=== PATIENT | female | born 2000 | race Two or more races ===

== ENCOUNTER 2024-05-11 09:53 | Emergency (ER) | payer BC, MEDICAID, SELFPAY ==
[2024-05-11 10:10] VITALS: BP 145/81; PULSE 61; RESP 18; TEMP 36.6; O2SAT 99; BMI 42.0
--- NOTE | 2024-05-11 10:19 | PD.EDRME ---
Rapid Medical Screening Exam RME Arrival date/time: 05/11/24 09:53 23-year-old female presents to the emergency department complains of abdominal pain, patient has history of gallstones Chief Complaint: Abdominal Pain Time Seen by Provider: 05/11/24 09:56 Vital signs: Vital Signs Temperature 97.9 F 05/11/24 10:10 Pulse Rate 61 05/11/24 10:10 Respiratory Rate 18 05/11/24 10:10 Blood Pressure 145/81 H 05/11/24 10:10 Pulse Oximetry (%) 99 05/11/24 10:10 Oxygen Delivery Method Room Air 05/11/24 10:10
[2024-05-11] MEDS: HYDROcodone/APAP 5/325 TABLET 1 TAB PO (10:21)
[2024-05-11] MEDS: METOCLOPRAMIDE 5 MG TABLET 10 MG PO (10:21)
[2024-05-11 10:35] LABS: Basophils % (Auto) 0 % (0-2.5); Eosinophils # (Auto) 0.1 Thou/mm3 (0.0-0.5); Eosinophils % (Auto) 1 % (0-10); Hematocrit 42.4 % (36.0-46.0); Hemoglobin 14.6 g/dL (12.0-16.0); Immature Granulocytes % (Auto) 0 % (0-0); Immature Granulocytes Auto 0.03 Thou/mm3 (0.00-0.00); Lymphocytes # (Auto) 2.6 Thou/mm3 (1.0-4.8); Lymphocytes % (Auto) 27 % (10-50); Mean Corpuscular HGB Conc 34.4 g/dl (31.0-37.0); Mean Corpuscular Hemoglobin 28.8 pg (25.0-35.0); Mean Corpuscular Volume 84 fL (80-100); Monocytes # (Auto) 0.4 Thou/mm3 (0.0-0.8); Monocytes % (Auto) 4 % (0-12); Neutrophils # (Auto) 6.5 Thou/mm3 (1.8-7.7); Neutrophils % (Auto) 68 % (37-80); Nucleated Red Blood Cell % 0 /100 WBC (0); Platelet Count 310 Thou/mm3 (140-440); RDW Standard Deviation 39.4 fL (36.4-46.3); Red Blood Count 5.07 Miln/mm3 (4.00-5.20); White Blood Count 9.7 Thou/mm3 (3.6-11.0)
[2024-05-11 10:49] LABS: Alanine Aminotransferase 10 U/L (10-49); Albumin, Serum 4.9 gm/dL (3.5-5.0); Albumin/Globulin Ratio 1.8 (1.2-2.2); Alkaline Phosphatase 86 U/L (46-116); Anion Gap 7 (7-16); Aspartate Amino Transferase < 10 U/L (0-34); BUN/Creatinine Ratio 14 Ratio (12-20); Bilirubin,Total 0.4 mg/dL (0.3-1.2); Blood Urea Nitrogen 11 mg/dL (9-23); Calcium 9.8 mg/dL (8.3-10.6); Calcium (Corrected) 9.8 mg/dL (8.5-10.1); Carbon Dioxide 29.2 mMol/L (20.0-31.0); Chloride 103 mMol/L (98-107); Creatinine (Component) 0.8 mg/dL (0.6-1.3); Estimated Creatinine Clearance 131.1 mL/min (>60); Globulin 2.7 gm/dL (2.3-3.5); Glucose 116 mg/dL (74-106); Lipase 38 U/L (12-53); Osmolality,Calculated 277 (275-295); Potassium 3.9 mMol/L (3.4-5.1); Sodium 139 mMol/L (136-145); Total Protein 7.6 gm/dL (5.7-8.2); Troponin I < 0.002 ng/mL (0.0-0.045); eGFR > 60 See Note
--- NOTE | 2024-05-11 10:52 | XR_ITS ---
Examination: Abdomen sonogram, Limited Date and time of exam: May 11, 2024 at 1141 hrs. Indications: Epigastric pain nausea vomiting beginning 7 hours ago Technique: Real-time alvarez scale transabdominal sonographic images of the upper abdomen obtained. Findings: Multiple gallstones Gallbladder wall 0.49 cm Common bile duct 0.4 cm no stones Pancreatic head 2.5 cm Liver 15.9 cm smooth contour no focal liver lesions Normal hepatopedal portal venous flow Patent IVC Impression: Cholelithiasis Abnormal thickening of the gallbladder wall 0.4 times CM, consider HIDA scan or MRCP follow-up to exclude cholecystitis No common bile duct stones
--- NOTE | 2024-05-11 12:26 | PD.EDABDPN ---
ED Abdominal Pain RME/HPI General Chief Complaint: Abdominal Pain Stated complaint: SHARP ABDOMINAL PAIN Time seen by provider: 05/11/24 09:56 Arrival date/time: 05/11/24 09:53 23-year-old female presents emergency department today complaints of intermittent abdominal pain epigastric patient for symptoms ongoing x 1 day patient reports history of gallstones in the past. Patient reports no chest pain or shortness of breath no headache dizziness or weakness Limitations: no limitations RME / HPI RME / HPI narrative: 05/11/24 09:53 23-year-old female presents to the emergency department complains of abdominal pain, patient has history of gallstones Related Data Previous Rx's ?Medication ?Instructions ?Recorded hydrocodone 5 mg-acetaminophen 325 1 tab PO BID PRN pain #10 tabs 05/11/24 mg tablet ibuprofen 800 mg tablet 800 mg PO TID PRN pain #30 tabs 05/11/24 ondansetron 4 mg disintegrating 4 mg PO Q8H PRN nausea and 05/11/24 tablet vomiting #10 tabs hydrocodone 5 mg-acetaminophen 325 1 tab PO Q6H #10 tabs 05/12/24 mg tablet Allergies Allergy/AdvReac Type Severity Reaction Status Date / Time No Known Allergies Allergy Unverified 05/12/24 14:31 Review of Systems Review of Systems Systems Reviewed: All systems reviewed, normal except as documented Constitutional Constitutional: Reports system reviewed and no additional complaints, except as documented, Denies fever(s) and Denies headache(s) Eyes Eyes: Reports system reviewed and no additional complaints, except as documented and Denies blurry vision ENT Ears, Nose, Mouth, and Throat: Reports system reviewed and no additional complaints, except as documented, Denies headache(s), Denies nasal congestion and Denies nasal discharge Cardiovascular Cardiovascular: Reports system reviewed and no additional complaints, except as documented, Denies chest pain and Denies dyspnea Respiratory Respiratory: Reports system reviewed and no additional complaints, except as documented, Denies chest congestion, Denies cough and Denies dyspnea Gastrointestinal Gastrointestinal: Reports system reviewed and no additional complaints, except as documented, Reports abdominal pain, Reports nausea and Reports vomiting Integumentary/Breasts Skin/Breast: Reports system reviewed and no additional complaints, except as documented and Denies rash Neurologic Neurologic: Reports system reviewed and no additional complaints, except as documented, Reports as per HPI and Denies headache(s) Past Medical History Past Medical History NEUROLOGIC: Negative Neurological Disorders CARDIAC: Negative Cardiac Disorders or Congestive Heart Failure RESPIRATORY: Negative Chronic Obstructive Pulmonary Disease (COPD) or Asthma GENITOURINARY: Negative Renal Disease ENDOCRINE: Negative Diabetes Mellitus Type 1 or Diabetes Mellitus Type 2 HEMATOLOGIC: Negative Sickle Cell Disease Social History SMOKING STATUS: Current some day smoker ED Exam General Limitations: Present no limitations General appearance: Present alert and in no apparent distress Head Head exam: Present atraumatic Eye Eye exam: Present normal appearance, PERRL and EOMI ENT ENT exam: Present normal exam, normal oropharynx and mucous membranes moist Neck Neck exam: Present normal inspection, full ROM and trachea midline Chest Chest inspection: Present normal inspection and symmetric chest wall rise Respiratory Respiratory exam: Present normal lung sounds bilaterally Cardiovascular Cardiovascular exam: Present regular rate, normal rhythm and normal heart sounds Abdominal Exam Abdominal exam: Present soft, tenderness and normal bowel sounds; Absent Lozano's sign or tenderness at McBurney's Point Abdominal tenderness: Present epigastrium, mild and moderate; Absent RUQ or RLQ Extremities Exam Extremities exam: Present normal inspection and full ROM Back Exam Back exam: Present normal inspection and full ROM Neurological Exam Neurological exam: Present alert, oriented X3 and CN II-XII intact Psychiatric Psychiatric exam: Present normal affect and normal mood Skin Skin exam: Present warm, dry, intact and normal color Course Quality Measures none Orders Category Date Time Status US gall bladder Stat Exams 05/11/24 10:52 Completed CBC Stat Lab 05/11/24 10:18 Completed Comprehensive Metabolic Panel Stat Lab 05/11/24 10:18 Completed HCG Qualitative,Urine Stat Lab 05/11/24 13:25 Completed HCG,Qualitative Serum Stat Lab 05/11/24 10:12 Completed Lipase Stat Lab 05/11/24 10:18 Completed Troponin I Stat Lab 05/11/24 10:18 Completed UA, C/S IF [Urinalysis, C/S if Indicated] Stat Lab 05/11/24 13:25 Completed HYDROcodone*/APAP 5/325 [[place] 5/325] Med 05/11/24 10:14 Discontinued 1 tab PO X1 ONE Metoclopramide [Reglan] Med 05/11/24 10:14 Discontinued 10 mg PO X1 ONE Vital Signs Vital signs: Vital Signs Temperature 97.9 F 05/11/24 10:10 Pulse Rate 61 05/11/24 10:10 Respiratory Rate 18 01/19/25 10:10 Blood Pressure 145/81 H 05/11/24 10:10 Pulse Oximetry (%) 99 05/11/24 10:10 Oxygen Delivery Method Room Air 05/11/24 10:10 O2 saturation 99% room air within normal limits Abdominal Pain MDM MDM Narrative MDM Narrative:: 23-year-old female presents emergency department today complaints of intermittent abdominal pain epigastric patient for symptoms ongoing x 1 day patient reports history of gallstones in the past. Patient reports no chest pain or shortness of breath no headache dizziness or weakness On exam patient well-appearing patient is not appear ill or toxic Patient medicated which did improve her symptom Lab work as well as ultrasound obtained Ultrasound consistent with gallstones and cholelithiasis Liver enzymes are normal I do not suspect patient has CBD stone obstruction Consultation: I discussed the findings of the ultrasound with Dr Smith as well as lab work he felt patient may follow-up in outpatient basis As the patient has no elevation liver enzymes negative Lozano sign and patient symptoms have improved patient be discharged home I did explain to the patient that if symptoms persist or worsen he should return immediately for further evaluation Patient discharged home in no distress to follow-up with primary care doctor in the next 24 to 48 hours and request evaluation by general surgeon Patient data External records reviewed:: [facility] previous records Clinical information provided by:: patient Social determinants that could affect healthcare access:: none Patient has the following chronic illnesses:: gallstones How is presenting disease/condition affected by chronic disease/condition?: caused by Evaluation data The following diagnostics were reviewed and interpreted by me:: lab results and radiology exam(s) Lab and/or radiology exams considered but not ordered:: Lab and radiology obtained Interpretation Summary: Reviewed by me Medications / Prescriptions Medications or Prescriptions considered but not ordered:: Given Medication administrations:: Medication Administration History Discontinued Medications Hydrocodone Bitart/Acetaminophen (Hydrocodone/Apap 5/325 Tablet) 1 tab PO X1 ONE Stop: 05/11/24 10:15 Last Admin: 05/11/24 10:21 Dose: 1 tab Documented By: DO Metoclopramide HCl (Metoclopramide 5 Mg Tablet) 10 mg PO X1 ONE Stop: 05/11/24 10:15 Last Admin: 05/11/24 10:21 Dose: 10 mg Documented By: DO Given Consultations Consultation(s) initiated? (list below): Yes Consultation #1 (Physician, Specialty, Details): Dr Smith Diagnosis Differential diagnosis abdominal pain: abdominal pain and gastroenteritis Most likely diagnosis given after review of the tests above:: Gastroenteritis Admission Indicated Admission indicated?: not indicated Admission Request Was there a request for admission?: No Disposition Plan Disposition Plan: Discharge Discharge Attestation Discharge Attestation: The patient and all family members were given an opportunity to ask questions and understood the discharge instructions. Discharge instructions specifically effects, indications for sooner follow up or return to the emergency department, and the expected course of current diagnosis. Patient condition: Stable Discharge Plan Plan Patient Disposition: HOME (Self Care) Disposition Comment: Stable Prescriptions/Referrals Prescriptions/Med Rec: New ibuprofen 800 mg tablet 800 mg PO TID PRN (Reason: pain) Qty: 30 0RF hydrocodone-acetaminophen 5-325 mg tablet 1 tab PO BID MDD 10 PRN (Reason: pain) Qty: 10 0RF ondansetron 4 mg tablet,disintegrating 4 mg PO Q8H PRN (Reason: nausea and vomiting) Qty: 10 0RF No Action hydrocodone-acetaminophen 5-325 mg tablet 1 tab PO Q6H MDD 4 Qty: 10 0RF Referrals: John Henriquez MD [Primary Care Provider] - 05/12/24 Problem List Clinical Impression: Gallstones Patient/Caregiver Discharge Instructions Education Materials: Treating Gallstones Additional Instructions: Please follow-up with your primary care doctor and or get referral to GI specialist for worsening symptoms or concerns return to the ER immediately You do have gallstones which will require further intervention with specialist Print Language: Slovak Stand Alone Forms: Tara Award Info., Work/School Release, Patient Portal Info Letter OLEG/MEDICAL RESEARCH ASSOCIATE Supervising Physician PA/MEDICAL RESEARCH ASSOCIATE Supervising Physician: Dr. Van
[2024-05-11 12:44] LABS: HCG,Qualitative Serum Negative
[2024-05-11 13:30] LABS: Collection Type, Urine Clean Catch; RBC,Urine 0 /hpf (0-3)
[2024-05-11 13:51] LABS: HCG Qualitative,Urine Negative
[2024-05-11 13:59] LABS: Amorphous Crystals,Urine Present (Absent); Bilirubin,Urine Negative (Negative); Blood,Urine Negative (Negative); Clarity,Urine Turbid (Clear/Hazy); Color,Urine Yellow (Lt Yel-Yel); Culture Indicated,Urine Not Indicated; Glucose, Urine Negative (Negative); Ketones,Urine 1+ (Negative); Leukocyte Esterase,Urine Positive (Negative); Nitrite,Urine Negative (Negative); PH,Urine 5.5 (5.0-7.0); Protein,Urine 1+ (Neg - Trace); Specific Gravity,Urine 1.035 (1.001-1.035); Squamous Epithelial Cell,Urine 9 /hpf (0-5); Urobilinogen,Urine Negative mg/dL (0.0-1.0); WBC,Urine 7 /hpf (0-5)
== END 2024-05-11 13:56 | disposition home or self-care (01) ==
PROVIDERS: Nurse Practitioner Primary Care; Emergency Provider Emergency Medicine; PCP Family Medicine
DX: K80.20 Calculus of gallbladder without cholecystitis without obstruction (principal)
CPT/HCPCS: 36415; 76705; 80053; 81001; 81025; 83690; 84484; 84703; 85025; 99284; A9270

== ENCOUNTER 2024-05-12 03:06 | Day surgery (SDC) | payer BC, MEDICAID, SELFPAY ==
[2024-05-12] VITALS (15 sets, daily range): BP systolic 100–158; BP diastolic 58–97; PULSE 52–108; RESP 12–23; TEMP 36.2–36.9; O2SAT 94–100; BMI 42.0
--- NOTE | 2024-05-12 03:35 | PD.EDRME ---
Rapid Medical Screening Exam [facility] Arrival date/time: 05/12/24 03:06 23-year-old female presents emergency department complaining of epigastric pain with nausea vomiting and subjective fever. Patient reports was seen yesterday in the emergency department diagnosed with gallstone was sent home with pain medication but reports symptoms worsened. Chief Complaint: Abdominal Pain Time Seen by Provider: 05/12/24 03:20 Vital signs: Vital Signs Temperature 97.8 F 05/12/24 03:13 Pulse Rate 58 L 05/12/24 03:13 Respiratory Rate 19 05/12/24 03:13 Blood Pressure 129/83 05/12/24 03:13 Pulse Oximetry (%) 97 05/12/24 03:13 Oxygen Delivery Method Room Air 05/12/24 03:13 Vital signs reviewed by provider: Yes
[2024-05-12] MEDS: ONDANSETRON ODT 4 MG TABRAP PO (03:51)
[2024-05-12] MEDS: KETOROLAC INJ 60 MG/2 ML VIAL 30 MG IM (03:51)
[2024-05-12 04:21] LABS: Basophils % (Auto) 0 % (0-2.5); Eosinophils # (Auto) 0.1 Thou/mm3 (0.0-0.5); Eosinophils % (Auto) 1 % (0-10); Hematocrit 43.7 % (36.0-46.0); Hemoglobin 14.9 g/dL (12.0-16.0); Immature Granulocytes % (Auto) 0 % (0-0); Immature Granulocytes Auto 0.03 Thou/mm3 (0.00-0.00); Lymphocytes % (Auto) 25 % (10-50); Mean Corpuscular HGB Conc 34.1 g/dl (31.0-37.0); Mean Corpuscular Hemoglobin 28.5 pg (25.0-35.0); Mean Corpuscular Volume 84 fL (80-100); Monocytes # (Auto) 0.6 Thou/mm3 (0.0-0.8); Monocytes % (Auto) 5 % (0-12); Neutrophils # (Auto) 8.2 Thou/mm3 (1.8-7.7); Neutrophils % (Auto) 69 % (37-80); Nucleated Red Blood Cell % 0 /100 WBC (0); Platelet Count 322 Thou/mm3 (140-440); RDW Standard Deviation 38.5 fL (36.4-46.3); Red Blood Count 5.22 Miln/mm3 (4.00-5.20)
[2024-05-12 04:39] LABS: Alanine Aminotransferase 11 U/L (10-49); Albumin, Serum 4.9 gm/dL (3.5-5.0); Albumin/Globulin Ratio 1.7 (1.2-2.2); Alkaline Phosphatase 85 U/L (46-116); Anion Gap 9 (7-16); Aspartate Amino Transferase 13 U/L (0-34); BUN/Creatinine Ratio 9 Ratio (12-20); Bilirubin,Total 0.7 mg/dL (0.3-1.2); Blood Urea Nitrogen 6 mg/dL (9-23); Calcium 10.2 mg/dL (8.3-10.6); Calcium (Corrected) 10.2 mg/dL (8.5-10.1); Carbon Dioxide 28.4 mMol/L (20.0-31.0); Chloride 101 mMol/L (98-107); Creatinine (Component) 0.7 mg/dL (0.6-1.3); Estimated Creatinine Clearance 149.9 mL/min (>60); Globulin 2.9 gm/dL (2.3-3.5); Glucose 104 mg/dL (74-106); Lipase 41 U/L (12-53); Osmolality,Calculated 273 (275-295); Potassium 3.8 mMol/L (3.4-5.1); Sodium 138 mMol/L (136-145); Total Protein 7.8 gm/dL (5.7-8.2); eGFR > 60 See Note
[2024-05-12 04:44] LABS: HCG,Qualitative Serum Negative
--- NOTE | 2024-05-12 04:50 | XR_ITS ---
Examination: Abdomen sonogram, Limited Date and time of exam: May 12, 2024 0507 hrs. Indications: Right upper abdominal pain beginning 2 days ago, history gallstones Technique: Real-time alvarez scale transabdominal sonographic images of the upper abdomen obtained. Findings: Multiple gallstones Gallbladder wall measures 0.42 cm Common bile duct 0.4 cm Pancreatic head 2.9 cm Liver 14.7 cm fatty infiltration smooth contour no focal liver lesions Normal hepatopedal portal venous flow Patent IVC Impression: Cholelithiasis Gallbladder wall is abnormally thickened 0.42 cm, consider HIDA scan or MRCP follow-up to exclude cholecystitis
--- NOTE | 2024-05-12 05:53 | PRELIM_ITS ---
Gallbladder ultrasound. May 12, 2024 at 0507 hoursClinical history: Right upper quadrant pain, h istory of cholelithiasis.Comparison: No prior study is available for comparison. Findings:The visual ized liver is without mass or ductal dilatation.Fatty infiltration of the liver is noted. Multiple ca lculi are noted within the gallbladder, with gallbladder wall thickening. Sonographic Lozano sign is positive.The common duct is normal in caliber at 4 mm. The pancreas is within normal limits.. No free fluid is demonstrated on the submitted images.Impression:Findings suspicious for acute calculous cho lecystitis.Hepatic steatosis. Report Electronically Signed By: Alexa Perez 05/12/2024 5:52:49 AM [EST]
--- NOTE | 2024-05-12 06:38 | EDNOTE_ITS ---
ED General RME/HPI General Chief complaint: Abdominal Pain Stated complaint: GALLSTONES PAIN Time Seen by Provider: 05/12/24 03:20 Arrival date/time: 05/12/24 03:06 RME / HPI RME / HPI narrative: Chief complaint: 05/12/24 03:06 epigastric pain, nausea vomiting and subjective fever x 1 day HPI: Patient is a 23-year-old female who no past medical history but >10 lbs recent weight gain, who presented to the emergency department complaining of epigastric pain with nausea vomiting and subjective fever x1 day. Patient reports she was seen yesterday in the ER and was diagnosed with gallstone, but was sent home with pain medication as no sign of infection noted. She now reports worsening of symptoms over the last 24 hours with right upper abdominal pain now 8/10 (compared to 5/10 yesterday). She described her pain as sharp and achy, she is unable to tolerate any food or water over the last 4-5 hours. She has had yellow-green vomitus x 4 episodes over the last 12 hours, and continues to have severe nausea. She also had subjective fever at home but did not take any medications for the pain or the fever. She has no other systemic symptoms at this time. She is otherwise in good health and has no medical conditions, denies taking any medications or supplements. In the ED, vitals showed WBC 12, no fevers and GB US confirms acute calculous cholecystitis. Past surgical history: Nil Allergies: NKFDA Social history: Tobacco?Use:?1-2 cigarettes daily x 15 years ETOH?Use:?Socially Drug?Note:?Denies Social?History?Note:?Lives?at home with , no children Family history: Denies any SCD or stroke in the family. Negative for cancers. L Related Data Previous Rx's ?Medication ?Instructions ?Recorded hydrocodone 5 mg-acetaminophen 325 1 tab PO BID PRN pain #10 tabs 05/11/24 mg tablet ibuprofen 800 mg tablet 800 mg PO TID PRN pain #30 tabs 05/11/24 ondansetron 4 mg disintegrating 4 mg PO Q8H PRN nausea and 05/11/24 tablet vomiting #10 tabs Allergies Allergy/AdvReac Type Severity Reaction Status Date / Time NKA* Allergy Uncoded 05/11/24 09:56 Review of Systems Review of Systems Narrative Review of Systems: GENERAL: subjective fevers/chills, no diaphoresis. HEENT: Denies headache or visual/hearing changes. Denies nasal discharge. NEURO: Denies unusual weakness or difficulty speaking. CARDIO: Denies chest pain or palpitations. PULM: Denies SOB, coughing, or wheezing. GI: epigastric-RUQ abdominal pain, N/V, denies C/D. Reports having BMs URO: Denies burning/itching/pain/urinary changes. DIGITAL COMMUNICATIONS MANAGER: Denies menstrual changes, hot flashes. MSK/EXT/SKIN: Denies joint/skeletal/muscle pain, issues/changes in upper or lower extremities, itchiness, or superficial pain. PSYCH: Cooperative, pleasant mood & affect. The rest of the review of systems is otherwise negative. ED Exam Narrative Physical exam: Constitutional Alert, oriented x4 and in mild discomfort, nauseous HEENT Vision grossly intact. Patent nares. Trachea midline, on RA Respiratory Chest normal on inspection and clear to auscultation bilaterally. Cardiovascular S1 and S2 audible, RRR. No murmurs or carotid bruit. No gross JVD. Abdominal Soft, tender to deep palpation in RUQ quadrant and epigastric regon. BS + Genitourinary No bladder tenderness, no flank pain. Normal to palpation. Musculoskeletal Extremities tone within normal limits. No LE edema. Neurological CN II - XII grossly intact. Extremity motor and sensation grossly intact. Skin Warm, dry and intact. No apparent lesions. Psychiatric Patient has a good affect, is cooperative. Course Course Course Narrative: GB US: Impression suspicious for acute calculous cholecystitis. Quality Measures none Orders Category Date Time Status Patient Condition Routine Admission 05/12/24 09:[address] in Surgical Day Care Routine Admission 05/12/24 09:44 Active Activity as Tolerated Routine Care 05/12/24 09:44 Ordered Insert IV NOW Care 05/12/24 09:43 Active Obtain Written Consent For: NOW Care 05/12/24 09:44 Completed Consult to General Surgery Stat Cons 05/12/24 07:01 Ordered US gall bladder Stat Exams 05/12/24 04:50 Completed CBC Stat Lab 05/12/24 03:49 Completed CMP [Comprehensive Metabolic Panel] Stat Lab 05/12/24 03:49 Completed HCG,Qualitative Serum Stat Lab 05/12/24 03:49 Completed Lipase Stat Lab 05/12/24 03:49 Completed PTT [Partial Thromboplastin Time] Stat Lab 05/12/24 03:49 Completed Prothrombin Time with INR Stat Lab 05/12/24 03:49 Completed Urinalysis, C/S if Indicated Stat Lab 05/12/24 06:53 Completed Ketorolac Inj [Toradol Inj] Med 05/12/24 03:36 Discontinued 30 mg IM X1 ONE Ondansetron Odt [Zofran Odt] Med 05/12/24 03:36 Discontinued 4 mg PO X1 ONE Piper/Tazo 3.375 gm [Zosyn] 50 ml Med 05/12/24 06:37 Discontinued IV X1 Sodium Chloride 0.9% 1000 ml [Ns] 1,000 ml Med 05/12/24 09:45 Active IV 100 mls/hr Code Status Routine Oth 05/12/24 09:43 Ordered Vital Signs Vital signs: Vital Signs Temperature 97.8 F 05/12/24 03:13 Pulse Rate 58 L 05/12/24 03:13 Respiratory Rate 19 05/12/24 03:13 Blood Pressure 129/83 05/12/24 03:13 Pulse Oximetry (%) 97 05/12/24 03:13 Oxygen Delivery Method Room Air 05/12/24 03:13 [facility] Patient data External records reviewed:: [facility] previous records Clinical information provided by:: patient Social determinants that could affect healthcare access:: none Patient has the following chronic illnesses:: None How is presenting disease/condition affected by chronic disease/condition?: no chronic disease Evaluation data The following diagnostics were reviewed and interpreted by me:: lab results, radiology exam(s) and EKG tracing(s) Lab and/or radiology exams considered but not ordered:: CT abdo Interpretation Summary: Likely acute calculous cholecystitis Medications Medications considered but not ordered:: Morphine for pain Medication administrations:: Medication Administration History Sodium Chloride (Ns) 1,000 mls @ 100 mls/hr IV .Q10H PAWEL Stop: 06/11/24 09:44 Discontinued Medications Piperacillin/Tazobactam/Dextrose (Zosyn) 50 mls @ 100 mls/hr IV X1 ONE Stop: 05/12/24 07:06 Last Infusion: 05/12/24 07:56 Dose: Infused Documented By: Admin: 05/12/24 07:07 Dose: 100 mls/hr Documented By: AM Ketorolac Tromethamine (Ketorolac Inj 60 Mg/2 Ml Vial) 30 mg IM X1 ONE Stop: 05/12/24 03:37 Last Admin: 05/12/24 03:51 Dose: 30 mg Documented By: ATTILA Ondansetron HCl (Ondansetron Odt 4 Mg Tabrap) 4 mg PO X1 ONE; Protocol Stop: 05/12/24 03:37 Last Admin: 05/12/24 03:51 Dose: 4 mg Documented By: ATTILA Keterolac for pain Zofran for N/V Zosyn for cholecystitison US Consultations Consultation(s) initiated? (list below): Yes Consultation #1 (Physician, Specialty, Details): Gen Surg - Dr Christian Diagnosis Differential Diagnosis ED Complaint MDM: gastric ulcer Most likely diagnosis given after review of the tests above:: Calculous cholecystitis Admission Indicated Admission indicated?: indicated Explain why admission is indicated or not indicated:: Acute cholecystitis, calculous Admission Request Was there a request for admission?: Yes Admission Attestation Admission request attestation: Discussed case with Dr Christian from general surgery service regarding admission. Discussed patients ED course, exam findings, labs, and radiology results. The Hospitalist [agrees] to accept the patient for admission. Disposition Plan Disposition Plan: Admit Medical Decision Making MDM Narrative MDM Narrative: Patient is a 23 year old female no past medical history but >10 lbs recent weight gain, who presented with RUQ-epigastric pain and severe N/V x 24 hours. She was found to have leukocytosis WBC 12 and calculous cholecystitis on GB US. General surgeyr Dr Christian consulted, appreciate recommendations, will admit for lap perfecto. Differential Diagnosis Differential Diagnosis: gastric ulcer Lab Data 05/12/24 03:49 05/12/24 03:49 Labs: Lab Results 05/12/24 05/12/24 Range/Units 03:49 06:53 WBC 12.0 H (3.6-11.0) Thou/mm3 RBC 5.22 H (4.00-5.20) Miln/mm3 Hgb 14.9 (12.0-16.0) g/dL Hct 43.7 (36.0-46.0) % MCV 84 (80-100) fL MCH 28.5 (25.0-35.0) pg MCHC 34.1 (31.0-37.0) g/dl RDW Std Deviation 38.5 (36.4-46.3) fL Plt Count 322 (140-440) Thou/mm3 Neut % (Auto) 69 (37-80) % Lymph % (Auto) 25 (10-50) % Potter % (Auto) 5 (0-12) % Eos % (Auto) 1 (0-10) % Baso % (Auto) 0 (0-2.5) % Neut # (Auto) 8.2 H (1.8-7.7) Thou/mm3 Lymph # (Auto) 3.0 (1.0-4.8) Thou/mm3 Potter # (Auto) 0.6 (0.0-0.8) Thou/mm3 Eos # (Auto) 0.1 (0.0-0.5) Thou/mm3 Baso # (Auto) 0.0 (0.0-0.2) Thou/mm3 Immature Gran # (Auto) 0.03 H (0.00-0.00) Thou/mm3 Absolute Nucleated RBC 0.00 (0.00-0.00) Thou/mm3 Immature Gran % 0 (0-0) % Nucleated RBC % 0 (0) /100 WBC PT 11.3 (9.0-12.2) Seconds INR 1.0 (0.9-1.3) APTT 27.9 (22.0-36.0) Seconds Sodium 138 (136-145) mMol/L Potassium 3.8 (3.4-5.1) mMol/L Chloride 101 (98-107) mMol/L Carbon Dioxide 28.4 (20.0-31.0) mMol/L Anion Gap 9 (7-16) BUN 6 L (9-23) mg/dL Creatinine 0.7 (0.6-1.3) mg/dL Estim Creat Clear Calc 149.9 (>60) mL/min eGFR > 60 (60 - ) See Note BUN/Creatinine Ratio 9 L (12-20) Ratio Glucose 104 (74-106) mg/dL Calculated Osmolality 273 L (275-295) Calcium 10.2 (8.3-10.6) mg/dL Corrected Calcium 10.2 H (8.5-10.1) mg/dL Total Bilirubin 0.7 (0.3-1.2) mg/dL AST 13 (0-34) U/L ALT 11 (10-49) U/L Alkaline Phosphatase 85 (46-116) U/L Total Protein 7.8 (5.7-8.2) gm/dL Albumin 4.9 (3.5-5.0) gm/dL Globulin 2.9 (2.3-3.5) gm/dL Albumin/Globulin Ratio 1.7 (1.2-2.2) Lipase 41 (12-53) U/L HCG, Qual Negative Ur Collection Type Clean Catch Urine Color Yellow (Lt Yel-Yel) Urine Clarity Turbid A (Clear/Hazy) Urine pH 6.0 (5.0-7.0) Ur Specific [place] 1.033 (1.001-1.035) Urine Protein 1+ A (Neg - Trace) Urine Glucose (UA) Negative (Negative) Urine Ketones Trace (Negative) Urine Blood Negative (Negative) Urine Nitrite Negative (Negative) Urine Bilirubin Negative (Negative) Urine Urobilinogen (Auto) Negative (0.0-1.0) mg/dL Ur Leukocyte Esterase Positive (Negative) Urine RBC 3 (0-3) /hpf Urine WBC 2 (0-5) /hpf Ur Squamous Epith Cells 3 (0-5) /hpf Amorphous Crystals Present A (Absent) Urine Bacteria None (None) Ur Culture Indicated? Not Indicated Discharge Plan Plan Patient Disposition: Admit Acute Care w/in Hospital Patient condition on transfer: Stable Problem List Clinical Impression: Acute calculous cholecystitis
[2024-05-12] MEDS: PIPER/TAZO 3.375 GM 50 ML IV ×2 (07:07→14:41)
[2024-05-12 07:30] LABS: Collection Type, Urine Clean Catch
[2024-05-12 09:03] LABS: Amorphous Crystals,Urine Present (Absent); Bilirubin,Urine Negative (Negative); Blood,Urine Negative (Negative); Clarity,Urine Turbid (Clear/Hazy); Color,Urine Yellow (Lt Yel-Yel); Culture Indicated,Urine Not Indicated; Glucose, Urine Negative (Negative); Ketones,Urine Trace (Negative); Leukocyte Esterase,Urine Positive (Negative); Nitrite,Urine Negative (Negative); Protein,Urine 1+ (Neg - Trace); RBC,Urine 3 /hpf (0-3); Specific Gravity,Urine 1.033 (1.001-1.035); Squamous Epithelial Cell,Urine 3 /hpf (0-5); Urobilinogen,Urine Negative mg/dL (0.0-1.0); WBC,Urine 2 /hpf (0-5)
[2024-05-12 09:13] LABS: Partial Thromboplastin Time 27.9 Seconds (22.0-36.0); Prothrombin Time 11.3 Seconds (9.0-12.2)
--- NOTE | 2024-05-12 11:51 | PD.SURHP ---
HPI Date of Admission 05/12/2024 Chief Complaint Chief Complaint: Patient is admitted with a chief complaints of acute cholecystitis with cholelithiasis HPI History of present illness revealed that the patient has been in severe pain over the right upper quadrant radiating to the back since last night. Actually the pain started the day before and she came to the emergency room around 8:00 yesterday and was found to have a gallstones on the ultrasound but her pain improved and was discharged. 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 Her vomiting was very frequent. She was given Toradol and her pain abated. Her nausea was controlled with Zofran. He had a similar episode of upper quadrant abdominal pain and May of last year and she was diagnosed with gallstones. Some of the patient was not advised to follow-up with the surgeon for surgery. She denies any history of gallstones in the family. Past Medical History Past Medical History NEUROLOGIC: Negative Seizures CARDIAC: Negative Cardiac Disorders or Congestive Heart Failure RESPIRATORY: Negative Chronic Obstructive Pulmonary Disease (COPD) or Asthma GENITOURINARY: Negative Renal Disease ENDOCRINE: Negative Diabetes Mellitus Type 1 or Diabetes Mellitus Type 2 HEMATOLOGIC: Negative Sickle Cell Disease OTHER HISTORY: Negative Blood Transfusions, Blood Transfusion Reaction or Anesthesia Reactions Social History SMOKING STATUS: Never smoker Meds Home Medications and Allergies Allergies Allergy/AdvReac Type Severity Reaction Status Date / Time NKA* Allergy Uncoded 05/11/24 09:56 Exam Vital Signs Temp Pulse Resp BP Pulse Ox O2 Del Method 98.4 F 57 L 20 122/69 99 Room Air 05/12/24 10:30 05/12/24 10:30 05/12/24 10:30 05/12/24 10:30 05/12/24 10:30 05/12/24 10:30 Narrative Exam Physical examination revealed an obese female who is 5 foot 4 inches tall weighing 245 pounds with BMI of 42.1 Constitutional Constitutional: mild distress Routine Respiratory Exam Comments: Auscultation revealed good breath sounds on both sides Routine Abdominal Exam Comments: Abdominal examination showed tenderness in the upper abdomen in the right upper quadrant Routine Rectal Exam Comments: Deferred Routine Exam Comments: Deferred Results Results: Laboratory Laboratory Narrative: Patient's laboratory workup showed WBC of 12,000 with a shift to the left. Her liver enzymes are normal Results: Imaging Imaging narrative: Ultrasound performed yesterday as well as today showed cholelithiasis with thickening of the gallbladder with a diagnosis of acute cholecystitis Assessment & Plan Additional Assessment Additional comments: Impression: Acute calculus cholecystitis Morbid obesity Plan Plan: Patient has a continuous pain for the past 48 hours and does not improved with emergency room visits. She has made a second visit within 24 hours to the emergency room with severe nausea and pain. Her laboratory workup was showing increased WBC compared to yesterday from 9000-12,000. I recommended that she undergo laparoscopic cholecystectomy because of acute cholecystitis which is developing. The procedure was explained to her in detail including potential complications like bile duct injury bleeding and the need for open cholecystectomy in case the laparoscopic approach fails. She is agreeable and the procedure is planned today as an emergency. Quality Measures Quality Measures none
--- NOTE | 2024-05-12 13:40 | SUR.PHASEI ---
1340: Pt. arrived with oral airway in place, vitals stable, breathing unlabored, no signs of distress, x5 dressing to ABD CDI, no active bleed noted, report received from MD Machado and Alexander CASTELLON.
[2024-05-12] MEDS: fentaNYL CIT INJ 50 mCg/ML AMP 2ML 25 MCG IV ×3 (13:54→14:23)
--- NOTE | 2024-05-12 13:58 | ESOP_ITS ---
Date of Procedure 05/12/24 Pre Op Diagnosis Acute cholecystitis with cholelithiasis Procedure Laparoscopic cholecystectomy Findings Patient is found to have an inflamed gallbladder with edema and multiple gallstones Procedure Description After endotracheal anesthesia was given the patient was placed in supine position and the abdomen was prepped with chloroprep solution and draped in a st erile manner. After time out was performed I injected a few cc of of half percent Marcaine with epinephrine below the umbilicus and I made an incision for about 3 cm in length. The fascia was cleaned and Veress needle was inserted to create a pneumoperitoneum up to 15 mmHg. Then introduced a 12 mm trocar and a 10 mm camera through the fascia and I inspected the intra-abdominal organs as well as the gallbladder and the liver. Another 5 mm trocar was inserted in the epigastric region under direct vision after injecting some local anesthesia. At this time the patient was kept in reverse Trendelenburg position with the left lateral tilt. The third 5 mm trocar was inserted over the mid axillary line under direct vision and a Jim and Joaquim grasper was used to hold the fundus of the gallbladder. The retraction was carried out by the assistant in nursing moving the fundus of the gallbladder towards the right shoulder of the patient to create enough traction. I placed a another 5 mm trocar in the midaxillary line just lateral to the rectus muscle under direct vision. I used a fenestrated grasper to retract the neck of the gallbladder laterally towards the patient's right hip. The Calot's triangle was exposed and I achieved the critical view of safety as follows: I dissected out the fatty tissue from the hepatocystic triangle and cleared this area. I also dissected inferior and posterior to the gallbladder to identify the cystic duct and the gallbladder wall. Then superiorly I dissected along the cystic plate up to lower one third third of the gallbladder to lift the gallbladder from the liver. At this time I confirmed that only 2 structures entering the gallbladder were cystic artery and the cystic duct. The common duct was seen distally but no dissection was carried out around the duct. I did not see any need for operative cholangiogram in this patient. The cystic duct was clipped doubly and then divided and cystic artery was similarly dealt with. Then the gallbladder was removed from the liver bed using Harmonic yuli to control the small blood vessels as the dissection proceeded. Then the gallbladder was from the liver bed completely and delivered through the umbilical port using an Endopouch. The liver bed was coagulated with cautery to obtain satisfactory hemostasis. The trocars were pulled out from the abdominal cavity and the fascia at the umbilical incision was closed with interrupted 0 Ethibond. Subcutaneous tissues was closed with 3- 0 chromic and injected a few cc of half percent Marcaine with epinephrine and the skin was closed with interrupted 4-0 Monocryl subcuticular stitches at all the trocar sites. Dressing was applied with 2 x 2 and Tegaderm. Patient tolerated the procedure well and returned to recovery room in stable condition. Anesthesia GETA Pathology / specimen Other (Gallbladder and the stones) IVF Infused 1,000 Estimated Blood Loss 50 Condition Stable Disposition PACU Surgeon Dejan Christian MD Surgical Staff Operation Date: 05/12/24 11:45 Case Staff Anesthesiologist: Brandon Machado RN First Assistant: Tamiko Young
[2024-05-12] MEDS: ONDANSETRON INJ 2 MG/ML INJ 2 ML 4 MG IV (14:24)
[2024-05-12] MEDS: METOCLOPRAMIDE INJ 5 MG/ML VIAL 2 ML 10 MG IVP (14:35)
--- NOTE | 2024-05-12 15:10 | SUR.PHASEII ---
1510: Pt. AAOx4, vitals stable, breathing unlabored, no complaint of pain or nausea, x5 dressing to ABD CDI, no active bleed noted, pt. tolerated sips of water well, pt. ambulated to wheelchair with steady gait and no assist, no complications. Gave discharge instructions to the pt. and her ride using guest attendant Franklin, both verbalized understanding and had no further questions. Pt. left with all personal belongings.
== END 2024-05-12 15:10 | disposition home or self-care (01) ==
LOC: SERX 09:39 → S2EX 09:58
PROVIDERS: Emergency Provider Student in an Organized Health Care Education/Training Program; PCP Family Medicine; Referring Provider Surgery; Visit Provider Surgery
PROC: 0FT44ZZ Resection of Gallbladder, Percutaneous Endoscopic Approach (ICD-10-PCS; CPT 47562; principal; 2024-05-12 11:30)
DX: K80.12 Calculus of gallbladder with acute and chronic cholecystitis without obstruction (principal); E66.01 Morbid (severe) obesity due to excess calories; Z68.41 Body mass index [BMI] 40.0-44.9, adult
CPT/HCPCS: 47562; 36415; 76705; 80053; 81001; 83690; 84703; 85025; 85610; 85730; 96365; 96372; 99285; A4217; A4649; J1100; J1885; J2250; J2405; J2543; J2704; J2765; J3010; J3490; Q0162; A9270